=== PATIENT | male | born 1960 | race Caucasian/White ===

== ENCOUNTER 2022-07-15 09:06 | Outpatient (CLI) | payer MEDICARE, BC, SELFPAY | END 2022-07-15 09:07 | disposition home or self-care (01) | PROVIDERS: PCP Family Medicine; Visit Provider Family Medicine | DX: M54.16 Radiculopathy, lumbar region (principal); M51.36 Other intervertebral disc degeneration, lumbar region | CPT/HCPCS: 62323; J0702; Q9966 ==

== ENCOUNTER 2022-09-05 07:48 | Outpatient (CLI) | payer MEDICARE, BC, SELFPAY ==
--- NOTE | 2022-09-05 08:15 | MR_ITS ---
[facility] [address] [facility] [address] Phone:?[phone] Fax:?[phone] Referring Physician Information: Davidson Harrington M.D. [address] [facility] [address] Phone:?[phone] Fax:?[phone] Patient:Charity Lord D.O.B:?1960 Sex:?Male Phone:?[phone] [facility] MRN:?[id number] Exam Date:?09/05/2022 ? EXAM: MRI of the LEFT HIP, without contrast CLINICAL: Left hip and lower back pain. COMPARISONS: X-rays 09/01/22. TECHNICAL: MR sequences of the left hip: Axials: PD FS Axial oblique: PD Coronals: PD, T2 Coronal pelvis: T1 and STIR Sagittals: PD and T2 SEDATION: None. CONTRAST: None. FINDINGS: Evaluation of multiple sequences is relatively limited by artifact. Hip joint: Small volume of fluid is present within the left hip joint. No convincing loose bodies. There is high-grade chondral loss involving the superior medial left hip joint. Labrum: Evaluation is limited on multiple sequences secondary to artifact. Suspect ill- defined degenerative fraying/tearing involving the majority of the labrum as visualized. No perilabral cyst formation identified. Proximal femur: No marrow edema, fracture or osteonecrosis. No convincing femoral cam morphology. Acetabulum: No significant subchondral marrow edema, cystic change or fracture. Version: No convincing retroversion as visualized. Coverage: Left lateral center edge (CE) angle measures approximately 44? (normal 25?-39?), midline coronal series 4 image 13. Ligamentum teres: Attenuated. Pelvis osseous structures: No evidence of osseous lesion or fracture involving the imaged osseous structures of the pelvis. Mild bone marrow edema about the inferior sacroiliac joints bilaterally likely reflecting reactive changes of arthrosis. No evidence of osteitis pubis. Myotendinous structures: Gluteus abductors: No convincing insertional tendinopathy or tear of gluteus minimus or medius. Adductors: There is high-grade tearing of the common abdominal rectus/adductor longus aponeurosis at the pubic attachment site bilaterally as seen on coronal series 2 image 6-8 and axial series 7 image 15-21. Hamstrings: There is advanced tendinosis with superimposed partial tearing involving the proximal hamstring tendons bilaterally at the ischial tuberosity attachment sites. Flexors: Intact iliopsoas and rectus femoris, without strain/tear. External rotators: Intact. The ischiofemoral and quadratus femoris spaces are within normal limits. Bursae: No demonstrable trochanteric or iliopsoas bursitis. Intrapelvic structures: Although evaluation of the intrapelvic structures is limited on this exam, no convincing pelvic mass is identified as visualized. Degenerative changes are seen to involve the imaged lower lumbar spine, please see dedicated lumbar spine MRI for further information. IMPRESSION: 1. High-grade tearing of the common abdominal rectus/adductor longus aponeurosis at the pubic attachment site bilaterally. 2. Advanced tendinosis with superimposed partial tearing of the proximal hamstring tendons bilaterally at the ischial tuberosity attachment sites. 3. High-grade chondral loss involving the superomedial left hip joint. 4. Although evaluation of the acetabular labrum is limited due to artifact on multiple sequences, suspect ill-defined degenerative fraying/tearing involving the acetabular labrum as visualized. High-grade chondral loss involving the superior medial left hip joint. 5. Acetabular over-coverage which can contribute to pincer-type femoral acetabular impingement. 6. Attenuated appearance of the ligamentum teres. 7. Mild changes of arthrosis involving the inferior sacroiliac joints bilaterally. ELANA Electronically signed on 09/05/2022 1:21:00 PM by Bashir Gavin D.O.
--- NOTE | 2022-09-05 09:15 | MR_ITS ---
[facility] [address] [facility] [address] Phone:?[phone] Fax:?[phone] Referring Physician Information: Davidson Harrington M.D. [address] [facility] [address] Phone:?[phone] Fax:?[phone] Patient:?Ulysses Lord D.O.B:?1960 Sex:?Male Phone:?[phone] [facility] MRN:?[id number] Exam Date:?09/05/2022 ? EXAM:?MR LUMBAR SPINE WITHOUT CONTRAST CLINICAL INFORMATION: Left low back and hip pain. COMPARISON: 04/15/2021.?SEDATION:?None. TECHNICAL INFORMATION: Imaging was performed at [facility]. Sagittal and axial T1 / FSE T2, and sagittal STIR images were obtained through the lumbar spine. INTERPRETATION: L5-S1:?Moderate degeneration, bulge, constricted dural sac and S1 root sleeves due to circumferential epidural fat deposition. Moderate to severe foraminal up down stenosis and ganglion compression. L4-5: Mild degeneration, 2 mm spondylolisthesis, facet arthropathy and significant dural sac constriction at upper L5 due to epidural fat deposition. Mild to moderate left foraminal stenosis with ganglion contact and right facet joint effusion. L3-4: Normal disc height, no central stenosis or disc herniation and patent foramina. Mild facet degeneration. L2-3: Moderate degeneration, mild central canal narrowing with increased epidural fat deposition and no disc herniation or neural impingement. Unremarkable facet joints. L1-2: Moderate degeneration and dural sac constriction due to epidural fat deposition. No herniation or foraminal stenosis. T12-L1: Unremarkable. Osseous Structures: Fat suppressed images are negative for acute or subacute fractures. Paraspinous Soft Tissues: No mass lesions. Conus, Cord and Cauda Equina: Normal position conus and no evidence of intradural mass or arachnoiditis. Lipomatous filum terminale. CONCLUSION: 1. Severe dural sac constriction from L5 inferiorly into the sacrum due to prominent epidural lipomatosis. Lipomatosis also causes constriction of the dural sac at L1-2 and L2-3. 2. Moderate to severe L5-S1 foraminal stenosis and ganglion compression. 3. L4-5 facet degeneration with grade I spondylolisthesis, mild to moderate left foraminal stenosis and right facet joint effusion. 4. Comparison to 11/02/2020 shows new right facet joint effusion at L4-5. Electronically signed on 09/05/2022 2:57:00 PM by Gilberto Stephens M.D.
== END 2022-09-05 07:49 | disposition home or self-care (01) ==
LOC: MRI 07:51
PROVIDERS: PCP Family Medicine; Visit Provider Family Medicine
DX: M54.50 Low back pain, unspecified (principal); M43.16 Spondylolisthesis, lumbar region; M25.552 Pain in left hip; M25.48 Effusion, other site
CPT/HCPCS: 72148; 73721

== ENCOUNTER 2022-09-23 09:47 | Outpatient (CLI) | payer MEDICARE, BC, SELFPAY | END 2022-09-23 09:48 | disposition home or self-care (01) | LOC: INJ CL 09:48 | PROVIDERS: PCP Family Medicine; Visit Provider Family Medicine | DX: M54.16 Radiculopathy, lumbar region (principal); M51.36 Other intervertebral disc degeneration, lumbar region | CPT/HCPCS: 62323; J0702; Q9966 ==

== ENCOUNTER 2022-10-16 06:24 | Outpatient (CLI) | payer MEDICARE, BC, SELFPAY ==
[2022-10-16 06:56] VITALS: BP 124/87; PULSE 62; RESP 18; TEMP 36.1; O2SAT 98
[2022-10-16 07:32] VITALS: BP 106/74; PULSE 58; RESP 18; O2SAT 96
--- NOTE | 2022-10-16 07:33 | P.ORPRC_ITS ---
Procedure Note Date of procedure: 10/16/22 Procedure: SURGEON: Edi Khalil MD PROCESS CONTROLS TECHNICIAN: Josiane De Oliveira PA-C PREOPERATIVE DIAGNOSIS: Left hip abductor tendinopathy/greater trochanteric bursitis POSTOPERATIVE DIAGNOSIS: Left hip abductor tendinopathy/greater trochanteric bursitis NAME OF OPERATION: Percutaneous tenotomy ANESTHESIA: Local ESTIMATED BLOOD LOSS: 2 mL. COMPLICATIONS: None. SPECIMENS: None. DRAINS: None. PREOPERATIVE ANTIBIOTICS: None INDICATIONS: The patient is a 62-year-old with a history of left hip pain secondary to the above diagnoses. Despite appropriate non operative management, they continue to have symptoms. Operative intervention was recommended. The risks, benefits and expected outcomes were discussed in detail. These included but were not limited to: Infection, bleeding, injury to blood vessel or nerve, venous thromboembolism. All questions were answered to their satisfaction. PROCEDURE: The patient was placed in the lateral decubitus position. The left hip was imaged in the long and short axes with the ultrasound transducer. Normal acoustic landmarks were identified. We then sterilely prepped and draped the skin, and used a sterile probe cover with sterile gel. Local anesthesia was established with 10 mL of a solution containing 2 % lidocaine without epinephrine, 0.5% Marcaine without epinephrine and sodium bicarbonate. An 11 blade was used to incise the skin. The Tenex TX 2 micro tip was used to treat the abductor tendon for a total of 3 minutes and 48 seconds. The incision was Steri-Stripped closed. A dry dressing was applied. Sponge and needle counts were correct x2. The patient tolerated the procedure well. There were no apparent complications. They were discharged to home in satisfactory condition. PLAN: The patient may weightbear as tolerates. Tylenol can be used for pain/discomfort. They may ramp up activity as the hip will allow. They will follow up in the office in 6 weeks to assess their progress.
== END 2022-10-16 07:51 | disposition home or self-care (01) ==
LOC: US 06:26
PROVIDERS: PCP Family Medicine; Visit Provider Orthopaedic Surgery
DX: S76.212A Strain of adductor muscle, fascia and tendon of left thigh, initial encounter (principal); M70.62 Trochanteric bursitis, left hip
CPT/HCPCS: 27006; 76942

== ENCOUNTER 2023-01-06 08:08 | Outpatient (CLI) | payer MEDICARE, BC, SELFPAY | END 2023-01-06 08:09 | disposition home or self-care (01) | LOC: INJ CL 08:09 | PROVIDERS: PCP Family Medicine; Visit Provider Family Medicine | DX: M51.36 Other intervertebral disc degeneration, lumbar region (principal); M54.16 Radiculopathy, lumbar region | CPT/HCPCS: 62323; J0702; Q9966 ==

== ENCOUNTER 2023-05-19 06:51 | Outpatient (CLI) | payer MEDICARE, BC, SELFPAY | END 2023-05-19 06:52 | disposition home or self-care (01) | LOC: INJ CL 06:51 | PROVIDERS: PCP Family Medicine; Visit Provider Family Medicine | DX: M51.36 Other intervertebral disc degeneration, lumbar region (principal); M54.16 Radiculopathy, lumbar region | CPT/HCPCS: 62323; J0702; Q9966 ==

== ENCOUNTER 2023-10-22 07:52 | Outpatient (CLI) | payer MEDICARE, BC, SELFPAY ==
--- NOTE | 2023-10-22 08:15 | MR_ITS ---
Patient: AZAM WING Facility:?[facility] Patient ID:?[id number] Site Patient ID:?[id number]. Site :?1960 Study:?MRI-Spine Lumbar W/O-10/22/2023 9:12:24 AM Ordering Physician:MIL STANTON Final Report: Indication: Lumbar disc degeneration Technique: Multiplanar, multisequence, MRI of the lumbar spine, obtained without contrast. Comparison: MRI lumbar spine 09/05/2022 Findings: Preserved lumbar lordosis. Trace anterolisthesis at L4-5. No acute osseous abnormality. Scattered degenerative Schmorl`s nodes. Unremarkable bone marrow signal. Conus medullaris terminates at L1-L2. Redemonstration of lipoma of the filum terminale, measuring slightly greater than 3 mm diameter at the L2-3 level, tapering caudally. No suspicious findings in the paraspinal soft tissues. Mild degenerative changes of the included SI joints. T12-L1, L1-L2: No significant neural foramen or spinal canal stenosis. L2-L3: Mild diffuse disc bulge. No right, mild left neural foraminal narrowing. Mild spinal canal narrowing exaggerated by dorsal epidural lipomatosis. L3-L4: Mild diffuse disc bulge, mild facet arthropathy. No left, mild right neural foraminal narrowing. No spinal canal stenosis. L4-L5: Anterolisthesis, diffuse disc bulge, moderate facet arthropathy. Mild right, moderate left neural foraminal stenosis. Moderate thecal sac effacement exaggerated by dorsal epidural lipomatosis. No significant osseous spinal canal narrowing. L5-S1: Diffuse disc bulge, moderate facet arthropathy. Severe bilateral neural foraminal stenosis. Severe thecal sac effacement due to circumferential epidural lipomatosis. No osseous spinal canal narrowing. Impression: 1. Lumbar spondylosis, not significantly progressed relative to 09/05/2022. 2. At L5-S1, severe bilateral neural foraminal stenosis with likely bilateral exiting L5 nerve root impingement. Severe thecal sac effacement due to circumferential epidural lipomatosis, without osseous spinal canal narrowing. 3. At L4-L5, moderate left neural foraminal stenosis, and moderate thecal sac effacement from dorsal epidural lipomatosis, without osseous spinal canal narrowing. 4. Incidental lipoma of the filum terminale, without evidence to suggest cord tethering. Dictated by Rachana Washington MD @ 10/22/2023 2:02:44 PM Signed by:?aRchana Washington MD @10/22/2023 2:02:44 PM (Electronic Signature)
== END 2023-10-22 07:53 | disposition home or self-care (01) ==
LOC: MRI 07:54
PROVIDERS: PCP Family Medicine; Visit Provider Physician Assistant
DX: M51.36 Other intervertebral disc degeneration, lumbar region (principal); M47.896 Other spondylosis, lumbar region; M48.07 Spinal stenosis, lumbosacral region; M48.061 Spinal stenosis, lumbar region without neurogenic claudication
CPT/HCPCS: 72148

== ENCOUNTER 2024-04-15 07:14 | Outpatient (CLI) | payer MEDICARE, BC, SELFPAY | END 2024-04-15 07:15 | disposition home or self-care (01) | LOC: INJ CL 07:15 | PROVIDERS: PCP Family Medicine; Visit Provider Family Medicine | DX: M54.16 Radiculopathy, lumbar region (principal); M51.36 Other intervertebral disc degeneration, lumbar region | CPT/HCPCS: 62323; J0702; Q9966 ==

== ENCOUNTER 2024-06-08 07:26 | Outpatient (CLI) | payer MEDICARE, BC, SELFPAY ==
--- NOTE | 2024-06-08 08:00 | CT_ITS ---
Patient: AZAM WING Facility:?[facility] Patient ID:?[id number] Site Patient ID:?[id number]. Site :?1960 Study:?CT-Spine Lumbar -06/08/2024 8:48:23 AM Ordering Physician:Jesus Kan Final Report: INDICATION: Lumbar spondylosis, preop exam. TECHNIQUE: CT lumbar spine without contrast. COMPARISON: X-ray pelvis 09/01/2022 FINDINGS: Lumbar vertebral body height is maintained. There is slight anterolisthesis of L4 over L5. The reduction of intervertebral disc height is present at L2-3 and L5-S1 levels. Vacuum disc phenomenon is identified at L4-5 and L5-S1 level. There is no acute fracture. Multilevel degenerative changes are as described below. L1-2: No significant spinal canal or neural foraminal narrowing. L2-3: No significant spinal canal or neural foraminal narrowing. L3-4: There is minimal disc bulge and [id number] facet arthropathy causing mild neural foraminal narrowing and spinal canal stenosis. Infolding of the ligamentum flavum is present. L4-5: Minimal anterolisthesis of L4 over L5 with pseudo disc bulge. Advanced facet arthropathy and thickening of the left greater than right ligamentum flavum is present. There is mild to moderate neural foramina and mild spinal canal stenosis. L5-S1: There is central posterior osteophytes and disc bulge with bilateral facet arthropathy causing mild neural foraminal stenosis. No significant spinal canal narrowing. Variable deeper soft tissue demonstrates no acute findings. No acute abnormality in the included abdomen. IMPRESSION: Scattered multilevel degenerative changes, most pronounced at L4-5 level. Please note that all CT scans at this facility use dose modulation, iterative reconstruction, and/or weight-based dosing when appropriate to reduce radiation dose to as low as reasonably achievable. Dictated by Vernon Lenz MD @ 06/09/2024 7:33:22 AM Signed by:?Vernon Lenz MD @06/09/2024 7:33:22 AM (Electronic Signature)
== END 2024-06-08 07:27 | disposition home or self-care (01) ==
LOC: CT 07:27
PROVIDERS: PCP Family Medicine; Visit Provider Neurological Surgery
DX: M47.896 Other spondylosis, lumbar region (principal); M43.17 Spondylolisthesis, lumbosacral region
CPT/HCPCS: 72131

== ENCOUNTER 2024-08-05 12:57 | Outpatient (CLI) | payer MEDICARE, SELFPAY ==
--- NOTE | 2024-08-05 13:00 | CRLHL7_ITS ---
For Patients: As a result of the Century Cures Act, medical imaging exams and procedure reports are released immediately into your electronic medical record. You may view this report before your referring provider. If you have questions, please contact your health care provider. INDICATION: Low back pain. COMPARISON: 06/08/2024. TECHNIQUE: Noncontrast CT lumbar spine. FINDINGS: Normal vertebral body alignment. No acute fractures. Interval postop changes of diskectomy and interbody fusion L4-5 and L5-S1 with posterior hipolito trans beer screw fixation L4-S1. Hardware appears well seated. [id number]: No spinal canal or neural foraminal narrowing. L1-2: Disc degeneration. Diffuse disc bulge. No narrowing of spinal canal. No neural foraminal narrowing. L2-3: Disc degeneration loss disc height. Posterior disc bulge. Mild narrowing of spinal canal. No neural foraminal narrowing. L3-4: Postoperative changes. No narrowing of spinal canal. No neural foraminal narrowing. L4-5: Postop changes. Spinal canal is decompressed by laminectomy. No neural foraminal narrowing. L5-S1: Prominence of the epidural fat. Tapered narrowing of thecal sac. No impingement of the traversing S1 nerve roots. Allowing for artifact, there may be mild narrowing of bilateral foramina. Degenerative changes of the SI joints. Scattered vascular calcifications. Partially calcified density within the left pelvis interposed between the cell as and iliac musculature (series 3, image [id number]). This is new from the previous CT likely related to postoperative changes. IMPRESSION: 1. Normal alignment. No fractures 2. Interval postop changes L4-5 and L5-S1. Hardware appears well seated 3. At L2-3, mild narrowing of the spinal canal 4. At L5-S1, stable prominent epidural fat. There may be mild narrowing of the bilateral neural foramina. Please note that all CT scans at this facility use dose modulation, iterative reconstruction, and/or weight-based dosing when appropriate to reduce radiation dose to as low as reasonably achievable. Dictated by Chay Giles MD @ 08/07/2024 8:23:57 AM (Electronically Signed)
== END 2024-08-05 12:58 | disposition home or self-care (01) ==
LOC: CT 13:01
PROVIDERS: PCP Family Medicine; Visit Provider Neurological Surgery
DX: M54.50 Low back pain, unspecified (principal); M51.26 Other intervertebral disc displacement, lumbar region; M51.27 Other intervertebral disc displacement, lumbosacral region; M43.17 Spondylolisthesis, lumbosacral region
CPT/HCPCS: 72131

== ENCOUNTER 2024-09-24 15:07 | Emergency (ER) | payer MEDICARE, SELFPAY ==
[2024-09-24 15:11] VITALS: BP 117/55; PULSE 70; RESP 24; TEMP 36.6; O2SAT 96; BMI 51.7
--- NOTE | 2024-09-24 15:42 | ED.WEAKNESS ---
HPI - Weakness General Chief complaint: Weakness Stated complaint: Unable to eat, dehydration Time Seen by Provider: 09/24/24 15:29 History of Present Illness HPI Narrative: This 64-year-old male typically goes to [facility] but is frustrated with their services there. He comes in here stating that he has not been able to eat much of anything for the past week because when doing so he feels nauseated and the taste in his mouth is not pleasant. He had a surgery on his back couple months ago and currently has a PICC line in place where he is receiving vancomycin. He states that he is able to take some liquids a but does have some episodes of diarrhea also at times. He arrives here with normal vital signs. He states that he is feeling weak but he does have sufficient strength to get up and ambulate. He is morbidly obese with a BMI greater than 50. Related Data Home Medications ?Medication ?Instructions ?Recorded ?Confirmed amlodipine 10 mg tablet 10 mg PO QDAY 06/23/22 11/26/22 aspirin 81 mg tablet,delayed 81 mg PO QDAY 06/23/22 11/26/22 release escitalopram oxalate 20 mg tablet 20 mg PO QDAY 06/23/22 09/24/24 ezetimibe 10 mg tablet 10 mg PO QHS 06/23/22 09/24/24 famotidine 20 mg tablet 20 mg PO QDAY 06/23/22 11/26/22 metoprolol succinate 100 mg mg PO 06/23/22 11/26/22 tablet,extended release 24 hr nitroglycerin 0.4 mg sublingual 0.4 mg sublingual ONCE PRN chest 06/23/22 11/26/22 tablet pain omega-3 acid ethyl esters 1 gram 2 cap PO QDAY 06/23/22 11/26/22 capsule pantoprazole 40 mg tablet,delayed mg PO 06/23/22 11/26/22 release rosuvastatin 40 mg tablet 40 mg PO QDAY hyperlipidemia 06/23/22 09/24/24 celecoxib 200 mg capsule mg 09/24/24 digoxin 250 mcg (0.25 mg) tablet DAILY 09/24/24 furosemide 40 mg tablet mg DAILY 09/24/24 gabapentin 300 mg capsule mg 3XD 09/24/24 metformin 500 mg tablet,extended mg PO 09/24/24 release 24 hr vancomycin 5 gram intravenous g IV 09/24/24 solution Allergies Allergy/AdvReac Type Severity Reaction Status Date / Time Penicillins Allergy Verified 04/15/24 08:03 Xabhmoa-HQH-OzI Reductase Allergy Verified 04/15/24 08:03 Inhibitor Review of Systems Status of ROS: Reports: 10 or more systems reviewed and unremarkable except as noted in History and below Narrative: Constitutional: No fevers. Eyes: No discharge. No vision changes. HENT: No congestion, no sore throat, no ear pain. Cardiovascular: No chest pain, no palpitations. Respiratory: No shortness of breath, no wheezes, no cough. Gastrointestinal: No abdominal pain, no vomiting, no diarrhea. Genitourinary: No dysuria, no hematuria. Musculoskeletal: Normal range of motion. Skin: No rashes, no pruritis. Neurological: No dizziness, sensory change, speech change. Generalized weakness. Endo/Heme/Allergies: No bruising or bleeding. No polydipsia. Pysch: no suicidality, no anxiety, no insomnia. All other systems reviewed and are negative. [facility] Medical History Hamstring tendinitis of left thigh ?M76.892 - Other specified enthesopathies of left lower limb, excluding foot (ICD-10) Greater trochanteric bursitis of left hip ?M70.62 - Trochanteric bursitis, left hip (ICD-10) Hypercholesteremia ?E78.00 - Pure hypercholesterolemia, unspecified (ICD-10) Hypertension ?I10 - Essential (primary) hypertension (ICD-10) Sleep apnea ?G47.30 - Sleep apnea, unspecified (ICD-10) GERD (gastroesophageal reflux disease) ?K21.9 - Gastro-esophageal reflux disease without esophagitis (ICD-10) Surgical History Status post hip surgery (10/16/22) ?Z98.890 - Other specified postprocedural states (ICD-10) History of elbow surgery ?Z98.890 - Other specified postprocedural states (ICD-10) History of bilateral knee replacement ?Z96.653 - Presence of artificial knee joint, bilateral (ICD-10) Social History Smoking Status: Never smoker Do you use any of these nicotine containing products: None Second hand tobacco smoke exposure: No How often do you have a drink containing alcohol: 2-3 times a week AUDIT-C Alcohol total score: 3 Non-prescribed substance use: denies use Are you now , , , , never or living with a partner: Social isolation score (0-1 are the most socially isolated patients): 1 Exam Const: Vital Signs, click to edit/add: Vital Signs - 24 hr 09/24/24 15:11 Temperature 97.8 F Pulse Rate [Pulse Oximeter] 70 Respiratory Rate 24 Blood Pressure [Ri ght Upper Arm] 117/55 L Pulse Oximetry 96 Oxygen Delivery Me thod Room Air Course Vital Signs Vital signs: Initial Vital Signs Temperature 97.8 F 09/24/24 15:11 Temperature Source Temporal Artery Scan 09/24/24 15:11 Pulse Rate 70 09/24/24 15:11 Respiratory Rate 24 09/24/24 15:11 Blood Pressure 117/55 L 09/24/24 15:11 Blood Pressure Mean 75 09/24/24 15:11 Blood Pressure Position Sitting 09/24/24 15:11 Pulse Oximetry 96 09/24/24 15:11 Oxygen Delivery Method Room Air 09/24/24 15:11 Vital Signs Temperature 97.8 F 09/24/24 15:11 Pulse Rate 70 09/24/24 15:11 Respiratory Rate 24 09/24/24 15:11 Blood Pressure 117/55 L 09/24/24 15:11 Pulse Oximetry 96 09/24/24 15:11 Oxygen Delivery Method Room Air 09/24/24 15:11 Temperature 97.8 F 09/24/24 15:11 Pulse Rate 70 09/24/24 15:11 Respiratory Rate 24 09/24/24 15:11 Blood Pressure 117/55 L 09/24/24 15:11 Pulse Oximetry 96 09/24/24 15:11 Oxygen Delivery Method Room Air 09/24/24 15:11 Medications Administered Medications: Discontinued Medications Generic Name Dose Route Start Last Admin Trade Name Freq PRN Reason Stop Dose Admin Dextrose/Sodium Chloride 1,000 mls @ 1,000 mls/hr 09/24/24 15:39 09/24/24 16:36 5 % Dextrose/0.45% Sod Chlor IV 09/24/24 16:38 1,000 mls/hr .Q1H ONE Administration Methylprednisolone Sodium Succinate 125 mg 09/24/24 15:39 09/24/24 16:40 Methylprednisolone Sod Succ 62.5 Mg/Ml (125) IVP 09/24/24 15:40 125 mg ONCE ONE Administration MDM - Weakness MDM Narrative Medical decision making narrative: This 64-year-old male comes in reporting generalized weakness and fatigue. He states that he is interested in food but when he tries to eat something and has a terrible taste in his mouth. He does report some diarrhea. He has a PICC line in place and is getting vancomycin treatments after a surgery that occurred 2 and half months ago that resulted in infection apparently. He does not normally Dr. Here and so we do not have any records regarding his past medical history. An IV was established where the patient received a L of D5 half-normal saline along with a dose of methylprednisolone 125 mg. Labs are acquired and return with notable finding of hemoglobin at 7.6. The patient was not aware of low hemoglobin. The nurse did acquire recent records from his visits elsewhere and see that this is not a new finding. His hemoglobin is ranging between 7.6 and 8.5 over the past couple weeks. The patient states that he did start taking Eliquis a few weeks ago because he was noted to be in atrial fibrillation at times. He does not report any obvious bleeding. He states that he did have a knee surgery about 12 years ago after which time he did receive a blood transfusion. this patient is okay to be discharged home but may need a transfusion at some point. I advised him to follow-up with his primary physician regarding these findings. He is instructed to return here if symptoms are worsening. I advised him to hold his Eliquis until further instructions from his primary physician. Lab Data Labs: Lab Results 09/24/24 Range/Units 16:00 WBC 6.43 (4.50-11.00) K/uL RBC 2.61 L (4.30-5.90) m/uL Hgb 7.6 L* (13.5-17.5) gm/dL Hct 24.3 L (37.0-53.0) % MCV 93 (80-100) fL MCH 29 (26-34) pg MCHC 31 L (32-36) gm/dL RDW Coeff of Naomi 16.6 H (11.5-15.5) % Plt Count 253 (140-440) K/uL Neut % (Auto) 75.2 H (42.0-72.0) % Lymph % (Auto) 8.7 L (20-44) % Greene % (Auto) 11.5 H (0.0-11.0) % Eos % (Auto) 3.6 (0.0-7.0) % Baso % (Auto) 0.5 (0.0-3.0) % Neut # (Auto) 4.80 (1.7-7.0) K/uL Lymph # (Auto) 0.60 L (0.90-2.90) K/uL Greene # (Auto) 0.70 (0.00-0.90) K/UL Eos # (Auto) 0.23 (0.00-0.50) K/uL Baso # (Auto) 0.03 (0.00-0.30) K/uL Abs Immat Gran (auto) 0.03 (0.00-0.30) K/uL Imm/Tot Granulo (auto) 0.5 % Sodium 134 L (135-149) mmol/L Potassium 4.7 (3.6-5.1) mmol/L Chloride 100 (96-114) mmol/L Carbon Dioxide 24 (20-32) mmol/L Anion Gap 10 (7-15) mEq/L BUN 10 (7-30) mg/dL Creatinine 1.3 (0.5-1.5) mg/dL Estimated Creat Clear 59.27 Estimated GFR 61 ml/min Glucose 99 (60-115) mg/dL Calcium 8.6 (8.4-10.6) mg/dL Discharge Plan Discharge Clinical Impression: Anemia, Dyspepsia Patient Disposition: Home, Self-Care Condition: Unchanged Additional Instructions: Hold Eliquis. Take liquids and increase diet as tolerated. Follow up with primary physician regarding low hemoglobin. Return if worsening. Prescriptions: No Action rosuvastatin 40 mg tablet 40 mg PO QDAY ezetimibe 10 mg tablet 10 mg PO QHS amlodipine 10 mg tablet 10 mg PO QDAY pantoprazole 40 mg tablet,delayed release (DR/EC) PO metoprolol succinate 100 mg tablet extended release 24 hr PO escitalopram oxalate 20 mg tablet 20 mg PO QDAY nitroglycerin 0.4 mg tablet, sublingual 0.4 mg sublingual ONCE PRN (Reason: chest pain) famotidine 20 mg tablet 20 mg PO QDAY aspirin 81 mg tablet,delayed release (DR/EC) 81 mg PO QDAY omega-3 acid ethyl esters 1 gram capsule 2 cap PO QDAY celecoxib 200 mg capsule Patient Comments: [NO ORIGINAL SIG] furosemide 40 mg tablet DAILY vancomycin 5 gram recon soln IV digoxin 250 mcg (0.25 mg) tablet DAILY gabapentin 300 mg capsule 3XD metformin 500 mg tablet extended release 24 hr PO Patient Comments: TAKE ONE TABLET BY MOUTH WITH BREAKFAST AND TWO TABLETS WITH DINNER. Follow Up/Referrals: Samm Alberto MD [Primary Care Provider] - Stand Alone Forms: Results Scorecard Info Instructions
[2024-09-24 16:11] LABS: Basophils Absolute Auto 0.03 K/uL (0.00-0.30); Basophils Percent Auto 0.5 % (0.0-3.0); Eosinophils Absolute Auto 0.23 K/uL (0.00-0.50); Eosinophils Percent Auto 3.6 % (0.0-7.0); Hematocrit 24.3 % (37.0-53.0); Immature Granulocytes Abs Auto 0.03 K/uL (0.00-0.30); Immature Granulocytes Pct Auto 0.5 %; Lymphocytes Percent Auto 8.7 % (20-44); Mean Corpuscular HGB Conc 31 gm/dL (32-36); Mean Corpuscular Hemoglobin 29 pg (26-34); Mean Corpuscular Volume 93 fL (80-100); Monocytes Percent Auto 11.5 % (0.0-11.0); Neutrophils Percent Auto 75.2 % (42.0-72.0); Platelet Count* 253 K/uL (140-440); RDW Coefficient of Variation % 16.6 % (11.5-15.5); Red Blood Count 2.61 m/uL (4.30-5.90); White Blood Count* 6.43 K/uL (4.50-11.00)
[2024-09-24 16:23] LABS: Chloride* 100 mmol/L (96-114); Potassium* 4.7 mmol/L (3.6-5.1); Sodium* 134 mmol/L (135-149)
[2024-09-24 16:26] LABS: Anion Gap 10 mEq/L (7-15); Blood Urea Nitrogen* 10 mg/dL (7-30); Carbon Dioxide* 24 mmol/L (20-32); Creatinine* 1.3 mg/dL (0.5-1.5); Est. Creatinine Clearance* 59.27; Estimated Glomerular Filt Rate 61 ml/min; Glucose* 99 mg/dL (60-115)
[2024-09-24 16:27] LABS: Calcium* 8.6 mg/dL (8.4-10.6)
[2024-09-24 16:30] LABS: Hemoglobin* 7.6 gm/dL (13.5-17.5); Slide Review Reflex No
[2024-09-24] MEDS: 5 % DEXTROSE/0.45% SOD CHLOR 1,000 ML 1000 ML IV (16:36)
[2024-09-24] MEDS: METHYLPREDNISOLONE SOD SUCC 62.5 MG/ML (125) 125 MG IVP (16:40)
--- OUTSIDE RECORDS SUMMARY | 2024-09-24 17:23 | XMS_ITS | Data Portability ---
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 - If Bracing is ordered: Reduce pain by restricting mobility of the trunk. 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 Patient is on the way home Have you noticed any increased warmth, swelling, or irritation at, or surrounding the incision site? Denies any of the above signs of infection. Patient currently rates pain at /10. 4/10 Would you say that your pain is reasonable and adequately controlled? Yes How often are you using pain medication? Current methods of pain relief include: Hydrocodone 10-325mg q4hrs. Have you had a bowel movement since surgery? Not yet, but is taking stool softeners Do they have beau, and if so, a plan for removal? No need. Do you have any questions about how to take care of yourself or future follow-ups now that you are home? All questions answered Follow-up appointment scheduled 08/09/[address] Reviewed signs and symptoms of infection with the patient. Addressed the importance of reaching out to the clinic if there is any increased pain or if any other problem arises. 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 Patient verbalized understanding. Not available 07/09/2024 15:23:51 07/21/2024 07/21/2024 Assessment: - epidural abscess. L3/4 s/p L4-S1 Fusion - Patient's high BMI of 53 noted at the time of surgery may contribute to postoperative risks. Diagnosis: - Epidural abscess [TK] Conclusion: The patient, post L4-S1 OLLIF, has developed postoperative complications, with imaging suggesting an epidural abscess. The patient was functional at the last assessment, and a primary closure with a drain was applied to address the infection. The infection was noted to be above the area of surgery and there was no connection to the screw site. Further management and close monitoring are necessary. Auto Synopsis: 07-21-24-HEDRICK-ISE, Post L4-S1 OLLIF at [facility], WBC 22,000, f/u for epidural abscess L3-4, no screw site connection, primary closure w/ drain, BMI 53, [email or web address] Not available 07/21/2024 16:44:55 08/10/2024 08/10/2024 Diagnosis: - Status post L4 to S1 OLLIF - Post operative infection - Nerve root irritation Assessment/Plan: - Discussed the patient's physical exam and reviewed their imaging - Discussed all treatment options and agreed upon the following: - All questions answered to the patient's satisfaction - They will call the clinic or return if they have any interim concerns - Activity: WBAT, Instructed to BLTs, avoid strenuous activity and heavy lifting - Pain control: recommended course of OTC NSAIDs and Tylenol if no medical contraindications - Order: Follow-up CT imaging in two months - Order: Referral to physical therapy for strength training of lower extremities and lumbar support - Follow-up: with infectious disease specialist on the and with the clinic in two months for repeat imaging - Bone growth stimulator dispensed along with instructions on usage. [email or web address] Not available 08/10/2024 17:37:50 Plan of Treatment Reminders Order Date Submit Date Provider Last Modified By Organization Details Last Modified Time Details Appointments Follow Up 30 Min 2024 10:30A M MANJULA OROPEZA Not available Not available Not available Lab None recorded . Referral None recorded . Procedures None recorded . Surgeries None recorded . Imaging None recorded . Medication Orders None recorded . Patient TargetsNo targets recorded. Patient Instructions Encounter Date Encounter Id Patient Instructions Last Modified By Denisseati on Details Last Modified Time 12/29/2023 [id number] Conclusion: The patient exhibits severe lumbar degeneration, confirmed by imaging, with persistent 10/10 lower back pain extending to the left leg, aligning with nerve distribution. Non-surgical treatments have been attempted without sufficient improvement. Based on these findings, the patient is a strong candidate for surgery, specifically an OLLIF procedure facilitated by Dr. Loreta Pena at a facility capable of accommodating the patient's BMI requirements. The potential benefits and risks of the procedure have been discussed with the patient, who is eager to proceed as soon as possible for favorable outcomes and to ensure recovery before the fall season. Informed Consent: I discussed with the patient the diagnosis, prognosis, alternative option to do procedures in length and reviewed the films with the patient. I specifically went over the risk of the procedure including but not limited to Pain, bleeding, infection, failure to treat presenting condition, need for further procedures in the future, damage to adjacent blood vessels, nerves, and tissues, additional loss of function including memory, stroke, changes in vision, deafness, inability to smell, coordination loss, seizures, cerebral spinal fluid leak, weakness, impaired muscle function, numbness, paralysis, . We discussed that in my professional opinion the procedure is indicated and benefits outweigh the risk. but in no way any guarantee of success regarding the goal of the procedure can be provided. I was very clear that with chronic disease and smoking healing can be prolonged and the risks of the surgery/procedure are higher as well as poor outcome is more prevalent. For that reason, it is recommended to the patient not to start smoking, and quitting smoking prior to the procedure is always recommended. The patient understands all of the above and wishes to proceed with the procedure. Consent and Disclosure regarding medical care in limited capacity facility. Following has been clearly discussed with the patient: We at [facility] are committed to the highest quality care in [facility]. This by nature includes at times providing medical care in a hospital with limited specialty coverage. If the surgery has been chosen in such a hospital, it is considered to be generally safe in the setting of the chosen hospital. This may limit the amount of specialists available for care locally and may require the need to transfer the patient out to another facility if complications arise. Although complications are rare and the surgery has been chosen to be safe in the hospital of choice, the risks of complications are real and this is disclosed to the patient. The patient has been informed that he/she has the choice of hospitals and are hereby disclosed the possibility of complication and limited local capacity. We are working very carefully with the local hospital to put proper transfer mechanisms in place but many of the administrative matters are beyond the surgeon's reach. We encouraged a second opinion if desired, and that the patient should take time to think about options. Extensive financial disclosure was performed regarding my role in development of the devices, protocols, and research regarding the pending surgery with the patient and additional information has been provided. The patient understands all of this and has been given ample time to ask further questions. To my best knowledge, the patient does not have any untreated, underlying, contributory mental conditions or any psychosocial issues including but not limited to, depression, drug or alcohol abuse. OLLIF To my best knowledge, the patient does not have any significant untreated, underlying, contributory mental conditions or any psychosocial issues including but not limited to, depression, drug or alcohol abuse. Surgical necessity attestation for OLLIF: Patient reports pain of high severity limiting the following activities of daily living: Walking, sitting, lifting, bending. The patient s pain originates from the levels indicated on the imaging report on the lumbar spine. To my best knowledge patient does not have a generalized pain disorder or generalized pain behavior (ie. Somatoform disorder). The patient has completed the following diagnostic images within the past 12 months: Xray, MRI and/or CT of the lumbar spine. Intensive conservative therapies: Physical therapy, therapeutic injections, diagnostic injections. The patient s physical therapy was focused on the lumbar spine without improvement. The patient has tried therapeutic injections that have provided temporary relief. For these reasons, we recommend OLLIF (Oblique Lateral Lumbar Interbody Fusion). Other methods have discussed with patient. Any further delay will cause more unnecessary pain, suffering, extended duration, and increased costs to the patient and the health plan. Patient has significant lateral recess and foraminal stenosis, decompression will require a more than 50% facetectomy and possibly complete facetectomy to effectively treat the stenosis from the foraminal and lateral recess. The bone removal will create shortly iatrogenic instability that has to be treated with stabilization and fusion. Fusion for such amount of decompression is a standard treatment and I recommend anatomic decompression and minimal invasive interbody and posterior lateral fusion. Auto Synopsis: 12-29-2023 HEDRICK. Pt reports chronic LBP & leg pain, 05/05. Imaging confirms lumbar disc degeneration & spondylolisthesis. Pt completed required PT. Plan: Proceed to OLLIF surgery after confirming suitability. Outcome projected positive, pt displays strong candidacy for operative intervention. Synopsis: 6-4-13RC-JEANMARIE, consecutive therapy has failed in the back, CT of the lumbar spine from December 28, shows again L4 to S1, DDD, HMP, there is a mild grade [address] and severe degenerative changes with foraminal lat recess stenosis, patient cannot live with this pain anymore, we will proceed with L4 to S1 OLLIF, patient has high BMI, we have to find proper anesthesiologist service for the patient. [facility] Not available 12/29/2023 12:32:44 06/21/2024 [id number] Review With Patient => Post op medications were discussed with the patient. Patient is advised of the RX refill line at [phone] and has been asked to give us a 24-48hr notice before they are going to run out of pills. => Patient understand that narcotics can only be prescribed in increments of 7 days at a time, and that the providers at [facility] only manage narcotic use for up to 90 days post op. => It was discussed with the patient that the peak time for inflammation/pain after surgery is day 3-7. => Left leg numbness post-op was discussed with the patient as well as other signs and symptoms to monitor post operatively. => Patient was educated on post-op nerve root irritation. Pt was notified on the signs and symptoms to look for and how to contact us regarding implementing our nerve root protocol. --Post-Op Phone Call/Visits =>Patient is advised that they will be given a post op phone call 2 days after their surgery to discuss any questions they may have. =>Patient Post-op expectations will be covered again before discharge. =>Patient is encouraged to set up an appointment with their PCP 2 weeks post-op for an incision check and pain management update. => Patient has a 4 week post-op visit scheduled for 08/09/23 with Hung. This appointment will include a CT prior to the appointment, updated restrictions and the beginning of PT. --Activity => Patient was advised that they are able to remove their gauze bandages after the drainage has stopped. Steri strips are to stay on until they fall of on their own. => Patient is able to shower after surgery, but is to avoid submerging your wounds for 14 days post-op => Patient is educated that fusion will not likely be solid until at least 6 months after surgery so excessive activity needs to be held in the meantime. => Patient was advised of their 0-4 Week post op restrictions, as they will be given to them again at surgery discharge. --Day of Surgery => Patient is advised that the hospital/surgery center location will contact them the week of surgery regarding surgery details. => Patient was advised to bring their signed QR code consent form with them to surgery. Patient states that they have currently watched 05/05 videos in the patient expectation series. --Any questions? => All of the patient s questions were answered. Patient is advised to call the clinic if they have any further questions regarding their future surgery. I spent 30 minutes out of a 30-minute visit counseling the patient on education and answering questions regarding the chosen treatment plan. [email or web address] Not available 06/21/2024 11:08:17 08/10/2024 [id number] Conclusion: The patient has shown significant improvement post-surgery with stable hardware in place. Continued monitoring and rehabilitation are recommended to ensure optimal recovery. Synopsis: Ulysses Morton, 2024-08-10, DM, JEANMARIE, Lumbar CT, Date: 08-05-2024, Location: [facility]; s/p L4-S1 OLLIF, resolved infection; follow-up L CT, physical therapy, Follow-up: with ID specialist, two months for CT. Not available 08/10/2024 17:37:51 Reason for Referral None Reported. Results Created Date Observation Date Name Description Value Unit Range Abnormal Flag Note LastModifiedBy Organization Detail LastModifiedTime 12/31/19 24 12/29/2023 CT, lumba r spine , w/o contr ast No observ ation record ed. [email or web address] Not Available 2023 14:33:53 06/09/20 24 06/08/2024 CT, lumba r spine , w/o contr ast No observ ation record ed. PREETHI Not Available 2023 11:35:41 08/07/1908/05/2024 CT, lumba r spine , w/o contr ast No observ ation record ed. [address] [facility] [address] [place], [address], 08/14/2024 15:47:01 Result Notes None recorded. Procedures Surgical History Date Name Laterality Status Provider Name and Address Organization Details Recorded Time 07/08/2024 lumbar spinal fusion completed MANJULA OROPEZA [address], [place], [address], [facility] 08/10/2024 11:59:17 Imaging Results Imaging Date Name Status LastModified by Organiz ation Details LastModified Time 12/29/2023 CT, lumbar spine, w/o contrast completed [email or web address] Information not available 12/31/2023 14:33:53 06/08/2024 CT, lumbar spine, w/o contrast completed PREETHI Information not available 06/13/2024 11:35:41 08/05/2024 CT, lumbar spine, w/o contrast completed [address] [facility] [address] [place], [address], 08/14/2024 15:47:01 Procedure Notes None recorded. Medical Equipment None Reported. Allergies Allergen ID Allergen Name Allergen Category Reaction Reaction Severity Criticality Documentation Date Start Date Code Code System Note Provider Name and Address Organization Details Recorded Time 9533 Product containin g penicilli n (product) medicatio n swelling Not available Not available 10/05/2023 84661 8001 SNOMED Not Available Not Available Not Available 9534 Product containin g 3-hydroxy -3-methyl glutaryl- coenzyme A reductase inhibitor (product) medicatio n nausea Not available Not available 10/05/2023 24758 009 SNOMED Not Available Not Available Not Available 9535 oxycodone medicatio n Not available Not available Not available 10/05/2023 7804 RxNorm Not Available Not Available Not Available Medications Name Sig Start Date Stop Date Status Note LastModified by Organization Details LastModified Time celecoxib 200 mg capsule TAKE ONE CAPSULE BY MOUTH EVERY DAY WITH MEALS active Not Available Not Available No t Available cyclobenzap rine 10 mg tablet TAKE ONE TABLET BY MOUTH EVERY MORNING, ONE AT NOON AND TAKE ONE AT BEDTIME 2024 active Not Available Not Available Not Avai lable methocarbam ol 500 mg tablet Take 1 tablet 4 times a day by oral route as needed for 30 days, for spasms/pa in. 2023 active Not Available Not Available Not Avai lable nystatin 100,000 unit/mL oral suspension TAKE 10ML BY MOUTH THREE TIMES A DAY FOR 10 DAYS; SWISH AND SWALLOW 12/28 completed Not Available Not Available Not Available cefprozil 500 mg tablet TAKE ONE TABLET BY MOUTH TWICE A DAY active Not Available Not Available No t Available prednisone 10 mg tablet TAKE 6 TABLETS BY MOUTH ONCE DAILY FOR 2 DAYS THEN TAKE 5 TABLETS ONCE DAILY FOR 2 DAYS THEN TAKE 4 TABLETS ONCE DAILY FOR 2 DAYS THEN TAKE 12/28 completed Not Available Not Available Not Available metoprolol succinate ER 100 mg tablet,exte nded release 24 hr TAKE ONE TABLET BY MOUTH EVERY DAY active Not Available Not Available No t Available amlodipine 10 mg tablet TAKE ONE TABLET BY MOUTH EVERY DAY active Not Available Not Available No t Available cephalexin 500 mg capsule TAKE ONE CAPSULE BY MOUTH FOUR TIMES A DAY FOR 7 DAYS active Not Available Not Available No t Available pantoprazol e 40 mg tablet,karla yed release TAKE ONE TABLET BY MOUTH TWICE A DAY -30-60 MINUTES PRIOR TO MORNING AND EVENING MEALS active Not Available Not Available No t Available nitroglycer in 0.[address] TABLET UNDER THE TONGUE AT THE 1ST SIGN OF ATTACK. IF PAIN IS UNRELIEVE D OR WORSENED 5 MINS AFTER 1ST DOSE, PROMPT MEDICAL ASSISTANC active Not Available Not Available No t Available gabapentin 300 mg capsule Take 3 capsules 3 times a day by oral route as directed for 30 days, for pain. 2023 active Not Available Not Available Not Avai lable lisinopril 20 mg-hydrochl orothiazide 25 mg tablet TAKE ONE TABLET BY MOUTH EVERY DAY active Not Available Not Available No t Available hydroxyzine HCl 25 mg tablet TAKE ONE TABLET BY MOUTH EVERY MORNING, ONE AT NOON AND, TAKE ONE TABLET BY MOUTH AT BEDTIME 2024 active Not Available Not Available Not Avai lable metformin ER 500 mg tablet,exte nded release 24 hr TAKE ONE TABLET BY MOUTH EVERY DAY WITH BREAKFAST AND TAKE 2 TABLETS DAILY WITH DINNER active Not Available Not Available No t Available oxycodone 5 mg tablet TAKE 1 TO 2 TABLETS BY MOUTH EVERY 6 HOURS NEEDED FOR PAIN active Not Available Not Available No t Available escitalopra m 20 mg tablet TAKE ONE TABLET BY MOUTH EVERY DAY active Not Available Not Available No t Available ezetimibe 10 mg tablet TAKE ONE TABLET BY MOUTH AT BEDTIME active Not Available Not Available No t Available rosuvastati n 20 mg tablet TAKE TWO TABLETS BY MOUTH EVERY EVENING AT BEDTIME active Not Available Not Available No t Available rosuvastati n 40 mg tablet TAKE ONE TABLET BY MOUTH EVERY EVENING AT BEDTIME active Not Available Not Available No t Available Vitals Date Recorded Body height Heart rate Body temperature Body mass index (BMI) Body weight Oxygen saturation Oxygen saturation in Arterial blood by Pulse oximetry Body height Heart rate Body temperature Body mass index (BMI) Body weight Oxygen saturation Oxygen saturation in Arterial blood by Pulse oximetry Provider Name and Address Organization Details Last Updated DateTime 4 180.34 cm 73 /min 97.9 [degF] 50.2 kg/m2 047680. 25 g 96 % 96 % 180.34 cm 73 /min 97.9 [degF] 50.2 kg/m2 629311. 25 g 96 % 96 % Zoë Momin MD - [facility] 4 10:45:14 Date Recorded Body height Body mass index (BMI) Body weight Provider Name and Address Organization Details Last Updated DateTime 08/10/2024 180.34 cm 49.8 kg/m2 804928.48 g AMNJULA OROPEZA [address], [place], [address], [place] [facility] 08/10/2024 11:56:06 Social History Question Answer Notes LastModified by Organizat ion Details LastModified Time Tobacco Smoking Status Never Smoker Zoë Momin georgiana, [employer] [facility] 10/05/2023 12:22:12 What Is Your Level Of Alcohol Consumption? Occasional [email or web address] Information not available 10/05/2023 How Many Times Per Week Do You Consume Alcohol? 3-4 Times Per Week [email or web address] Information not available 10/05/2023 What Was The Date Of Your Most Recent Tobacco Screening? 12/29/2023 [email or web address] Information not available 12/29/2023 Do You Use Any Illicit Or Recreational Drugs? No [email or web address] Information not available 10/05/2023 Has Tobacco Cessation Counseling Been Provided? No [email or web address] Information not available 10/05/2023 Do You Or Have You Ever Used Any Other Forms Of Tobacco Or Nicotine? No [email or web address] Information not available 10/05/2023 Sex: Unknown Functional Status None recorded. Mental Status None recorded. Family History Relationship Description Onset Age of this Age Resolved Age Notes LastModified by Organization Details LastModified Time Brother History of artificial heart valve Not available 05/2024 12:23:03 Brother Heart disease [email or web address] Not available 10/04 12:23:14 Medical History Condition Response Gout N Blood Diseases N MRSA N Blood Transfusion N Head Trauma/Injury N Hernia Y Depression N COPD N Lung Disease N Developmental or Behavioral Disorders N Pacemaker N Difficulty Swallowing N Anesthesia Complications N Anxiety Disorder N Cystic Fibrosis N Muscle, Joint, or Bone Problems Y Obesity Y Vision or Eye Problems N Arthritis Y Blood Clot N Stroke N Bladder or Kidney Problems N High Cholesterol Y Headaches N Fibromyalgia N Allergies/Hayfever N Ear or Hearing Problems Y Parkinson's Disease N Hospitalizations N GI Problems N ADD/ADHD N Skin Problems N PTSD N Anemia N Multiple Sclerosis N Meningitis N Heart Attack ([place]) N Diabetes N Immunocompromised N Hepatitis/Liver Disease N Bleeding Disorder N Cancer/Tumors N Heart Murmur N Cerebral Palsy N AIDS/HIV N Congestive Heart Failure (CHF) N Abuse/Domestic Violence N Asthma N Seizures N Peripheral Vascular Disease N Epilepsy/Seizures N AFib N Reflux/GERD Y Sleep Apnea Y Thyroid Disorder N Aneurysm N Neuropathy N Pulmonary Embolism N Hypertension Y Autism Spectrum Disorder (ASD) N Osteoporosis N Past Encounters Encounter ID Performer Location Encounter Start Date Encounter Closed Date Diagnosis/Indication Diagnosis SNOMED-CT Code Diagnosis ICD10 Code Diagnosis Note [id number] MIL JESUS PA-C [facility] [address] [place] [address] [place] [address] 10/05/2023 12:02:17 10/06/2023 09:26:36 Degeneration of lumbar intervertebral disc 14109299 M51.36 Herniation of nucleus pulposus 63694672 M53.80 Spasm of back muscles 20 8707567 M62.830 [id number] Loreta Pena MD [facility] [address] [place] [address] [place] [address] 11/18/2023 11:51:32 11/20/2023 16:40:48 [id number] Loreta Pena MD [facility] [address] [place] [address] [place] [address] 12/29/2023 09:39:48 12/30/2023 10:00:12 [id number] Zoë Momin [facility] [address] [place] [address] [place] [address] 12/29/2023 09:39:56 12/30/2023 09:50:25 [id number] MANJULA OROPEZA [facility] [address] [place] [address] [place] [address] 06/21/2024 09:01:50 07/12/2024 03:48:08 [id number] MANJULA OROPEZA [facility] [address] [place] [address] [place] [address] 07/09/2024 15:25:56 07/09/2024 15:26:32 [id number] Stephanie [facility] [address] [place] [address] 07/21/2024 16:42:11 07/21/2024 16:45:05 [id number] MANJULA OROPEZA [facility] [address] [place] [address],[facility] [address] [address] 08/10/2024 10:57:54 08/12/2024 03:48:13 History of arthrodesis 775590355 Z98.1 M54.16 Postoperat lindsey wound infection 61497740 T81.40XD Health Concerns Section Related Observation LastModified by Organization Detai ls LastModified Time None Recorded Concern Status LastModified by Organization Details LastModified Time None Recorded Advance Directives Directive None Recorded Payers Encounter Date Sequence Insurance Name Policy Number Policy Everett Covered Member ID Everett Member ID Guarantor Name 12/29/2023 1 [place]MEDICARE REPLACEMENT /ADVANTAGE - HMO) [id number] Ulysses Lord [id number] Ulysses Lord 06/21/2024 1 [place] /[place]VANTAGE - HMO) [id number] Ulysses Lord [id number] Ulysses Lord 07/09/2024 1 [place] /[place]VANTAGE - HMO) [id number] Ulysses Lord [id number] Ulysses Lord 07/21/2024 1 [place] /ADVANTAGE - HMO) [id number] Ulysses Lord [id number] Ulysses Lord 08/10/2024 1 [employer] - DOS ON OR AFTER 19 (MEDICARE REPLACEMENT /ADVANTAGE - HMO) [id number] Ulysses Lord [id number] Ulysses Lord Notes Date Note Type Note Provider Name and Address Organization Details Recorded Time 12/29/2023 text/html Ulysses Lord , 1960, [id number], [id number] Location and Date of visit: [place], 12/29/2023Chief Complaint: Persistent and severe lower back pain with a pain intensity of 10/10, impacting the ability to walk by the end of the day. 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 12/29/2023 13:08:01 06/21/2024 text/html 1.) H&P?Patient completed their H&P on 06/20/24, though we do not yet have these records for review. 2.) Do you have a brace?Patient states they have been fitted for a brace. They have been advised to bring their brace to their surgery. 3.) Do you take any blood thinning medications?Patient states they currently take celecoxib and has been advised to stop taking these medications 7 days prior to surgery 4.) Do you have a PMHx of DVT/blood clotPatient denies any prior history of DVT or blood clots. 5.) Do you use any nicotine products?Patient denies any current or past use of nicotine products. BGS is discussed with the patient and ordered 6.) Allergies - do you have a penicillin allergy?Patient states they have a penicillin allergy and their reaction includes throat swelling. Patient has no reactions to Clindamycin 7.) Do we have the patient's updated imaging?Patient's imaging is up-to-date and can be located within the [facility] [address]. MANJULA OROPEZA [address], [place], [address], [facility] [employer] 06/21/2024 11:08:20 07/21/2024 text/html Ulysses Lord , 1960, [address], [id number] ation: ISEDate of Visit: 2024-07-21 Chief Complaint:Patient presents with worsening symptoms post L4-S1 OLLIF performed at [facility] two weeks prior. History of Present Illness:- Patient transferred from an outside emergency room to [place].- White blood cell count elevated at 22,000.- Imaging raised concerns of hematoma versus epidural abscess.- Despite symptoms, patient remains functional. Stephanie stoner, [facility] [employer] [facility] 07/21/2024 16:45:00 08/10/2024 text/html Chief Complaint: one month post op s/p L4-S1 History of Present Illness:Ulysses Lord, a 64-year-old male, is currently one month postoperative from an L4 to S1 OLLIF. He reports a significant improvement in his condition since the operation. Initially, Ulysses was hesitant about the rehabilitation process but found motivation and determination to recover. He expresses satisfaction with the care received at the rehabilitation facility, noting the rigorous nature of the therapy provided. Ulysses recounts a recent hospitalization on night due to an infection, during which he was under the care of Dr. Robles. His white blood cell count was elevated, indicating an active infection, which has since been surgically addressed with I and D. 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 He has been instructed on the use of a stimulator as part of his treatment plan. Pain today: 10/03Pain at its worst: 10/03 MANJULA OROPEZA [address], [place], [address], [facility] [employer] [facility] 08/10/2024 17:38:33
--- OUTSIDE RECORDS SUMMARY | 2024-09-24 17:23 | XMS_ITS | Continuity of Care Document ---
Author Organization [place] [facility], [facility] Address [address] [address] Care Team Providers Care Lacemaker Name Role Phone CHARLEY JARED Primary Care Provider [phone] Assessment Encounter Date Assessment Date Assessment LastModified by Organization Details LastModified Time 08/10/2024 08/10/2024 Diagnosis: - Status post L4 [...] stimulator dispensed along with instructions on usage. [email or web address] Not available 08/10/2024 17:37:50 Plan of Treatment [...] Encounter Id Patient Instructions Last Modified By Organization Details Last Modified Time 08/10/2024 [id number] Conclusion: The patient has shown significant improvement post-surgery with stable hardware in place. Continued monitoring and rehabilitation are recommended to ensure optimal recovery. Synopsis: Ulysses Morton, 2024-08-10, DM, [place], Lumbar CT, Date: 08-05-2024, Location: [facility]; s/p L4-S1 OLLIF, resolved infection; follow-up L CT, physical therapy, Follow-up: with ID specialist, two months for CT. [email or web address] Not available 08/10/2024 17:37:51 Reason for Referral None Reported. Results Created Date Observation Date Name Description Value Unit Range Abnormal Flag Note LastModifiedBy Organization Detail LastModifiedTime 08/07/1908/05/2024 CT, lumba r spine , w/o contr ast No observ ation record ed. [email or web address] [facility] [address] [place], [address], 08/14/2024 15:47:01 Result Notes None recorded. Procedures Surgical History Date Name Laterality Status Provider Name and Address Organization Details Recorded Time 07/08/2024 lumbar spinal fusion completed MANJULA OROPEZA [address], [place], [address], [facility] 08/10/2024 11:59:17 Imaging Results None recorded. Procedure Notes None recorded. Medical Equipment None Reported. Allergies Allergen ID Allergen Name Allergen Category Reaction Reaction Severity Criticality Documentation Date Start Date Code Code System Note Provider Name and Address Organization Details Recorded Time 9533 Product containin g penicilli n (product) medicatio n swelling Not available Not available 10/05/2023 17775 8001 SNOMED Not Available Not Available Not Available 9534 Product containin g 3-hydroxy -3-methyl glutaryl- coenzyme A reductase inhibitor (product) medicatio n nausea Not available Not available 10/05/2023 62928 009 SNOMED Not Available Not Available Not [...] t Available Vitals Date Recorded Body height Body mass index (BMI) Body weight Provider Name and Address Organization Details Last Updated DateTime 08/10/2024 180.34 cm 49.8 kg/m2 814489.48 g MANJULA OROPEZA [address],[facility] [address], [address], [employer] 08/10/2024 11:56:06 Social History Question Answer Notes LastModified by Organizat ion Details LastModified Time Tobacco Smoking Status Never Smoker Zoë stoner, [employer] [facility] 10/05/2023 12:22:12 What Is Your Level Of Alcohol Consumption? Occasional [email or web address] Information not available 10/05/2023 How Many Times Per Week Do You Consume Alcohol? 3-4 Times Per Week Information not available 10/05/2023 What Was The Date Of Your Most Recent Tobacco Screening? 12/29/2023 [email or web address] Information not available 12/29/2023 Do You Use Any Illicit Or Recreational Drugs? No Information not available 10/05/2023 Has Tobacco Cessation Counseling Been Provided? No [email or web address] Information not available 10/05/2023 Do You Or Have You Ever Used Any Other Forms Of Tobacco Or Nicotine? No Information not available 10/05/2023 Sex: Unknown Functional Status None recorded. Mental Status None recorded. Family History Relationship Description Onset Age of this Age Resolved Age Notes LastModified by Organization Details LastModified Time Brother History of artificial heart valve [email or web address] Not available 05/2024 12:23:03 Brother Heart disease [email or web address] Not available 10/04 12:23:14 Medical History Condition Response Gout N Blood Diseases N Blood Transfusion N MRSA N Hernia Y Head Trauma/Injury N Lung Disease N Depression N COPD N Developmental or Behavioral Disorders N Pacemaker N Difficulty Swallowing N Anesthesia Complications N Cystic Fibrosis N Anxiety Disorder N Muscle, Joint, or Bone Problems Y Obesity Y Vision or Eye Problems N Arthritis Y Blood Clot N Stroke N Bladder or Kidney Problems N High Cholesterol Y Headaches N Fibromyalgia N Allergies/Hayfever N Parkinson's Disease N Ear or Hearing Problems Y Hospitalizations N GI Problems N ADD/ADHD N Skin Problems N Anemia N PTSD N Multiple Sclerosis N Meningitis N Heart Attack ([place]) N Diabetes N Immunocompromised N Hepatitis/Liver Disease N Bleeding Disorder N Cancer/Tumors N Heart Murmur N Cerebral Palsy N AIDS/HIV N Congestive Heart Failure (CHF) N Abuse/Domestic Violence N Asthma N Peripheral Vascular Disease N Epilepsy/Seizures N AFib N Seizures N Reflux/GERD Y Sleep Apnea Y Thyroid Disorder N Aneurysm N Neuropathy N Pulmonary Embolism N Hypertension Y Autism Spectrum Disorder (ASD) N Osteoporosis N Past Encounters Encounter ID Performer Location Encounter Start Date Encounter Closed Date Diagnosis/Indication Diagnosis SNOMED-CT Code Diagnosis ICD10 Code Diagnosis Note [id number] Stephanie Murray [facility] [address] [place] [address] [address] VIJAY LAWLER [address] 07/21/2024 16:42:11 07/21/2024 16:45:05 [id number] MANJULA OROPEZA [facility] [address] [place] [address],[facility] [address] [place] [address] 08/10/2024 10:57:54 08/12/2024 03:48:13 History of arthrodesis 112092517 Z98.1 M54.16 Postoperat lindsey wound infection 55842288 T81.40XD Health Concerns Section Related Observation LastModified by Organization Detai ls LastModified Time None Recorded Concern Status LastModified by Organization Details LastModified Time None Recorded Payers Encounter Date Sequence Insurance Name Policy Number Policy Everett Covered Member ID Everett Member ID Guarantor Name 08/10/2024 1 [employer] - DOS ON OR AFTER 19 (MEDICARE REPLACEMENT/ ADVANTAGE - HMO) [id number] Ulysses Lord [id number] Ulysses Golombeski Notes Date Note Type Note Provider Name and Address Organization Details Recorded Time 08/10/2024 text/html Chief Complaint: one month post [...] provided. Ulysses recounts a recent hospitalization on due to an infection, during which he [...] part of his treatment plan. Pain today: 310Pain at its worst: 310 MANJULA OROPEZA [address], [place], [address], [facility] - [facility] 08/10/2024 17:38:33
== END 2024-09-24 17:49 | disposition home or self-care (01) ==
PROVIDERS: Emergency Provider Emergency Medicine Emergency Medical Services; PCP Family Medicine
DX: D64.9 Anemia, unspecified (principal); R10.13 Epigastric pain
CPT/HCPCS: 36415; 80048; 85025; 96374; 99283; 99284; J2919; S5010

== ENCOUNTER 2024-09-29 08:51 | Outpatient (CLI) | payer MEDICARE, SELFPAY | END 2024-09-29 08:52 | disposition home or self-care (01) | LOC: CT 08:51 | PROVIDERS: PCP Family Medicine; Visit Provider Physician Assistant | DX: M54.16 Radiculopathy, lumbar region (principal); M51.26 Other intervertebral disc displacement, lumbar region; M51.27 Other intervertebral disc displacement, lumbosacral region; Z98.1 Arthrodesis status | CPT/HCPCS: 72131 ==

== ENCOUNTER 2024-12-29 09:34 | Outpatient (CLI) | payer MEDICARE, SELFPAY ==
--- NOTE | 2024-12-29 10:00 | CRLHL7_ITS ---
For Patients: As a result of the Century Cures Act, medical imaging exams and procedure reports are released immediately into your electronic medical record. You may view this report before your referring provider. If you have questions, please contact your health care provider. INDICATION: Lumbar radiculopathy. TECHNIQUE: CT lumbar spine without contrast. COMPARISON: CT abdomen pelvis dated 09/29/2024. FINDINGS: Vertebrae: Redemonstrated postsurgical changes of L4-S1 PSIF with L3-4 laminectomies and disc spacers in place. Similar lucency about the L4 right transpedicular screw. Unchanged grade 1 anterolisthesis of L4 on L5. No evident acute fracture or traumatic subluxation. Discs and facet joints: Unchanged multilevel degenerative changes, as characterized on the prior examination, with mild spinal canal stenosis at L2-3 and mild left neural foraminal stenosis at L5-S1. Extraspinal findings: Redemonstrated postsurgical changes in the paraspinal soft tissues. No acute findings. IMPRESSION: 1. Unchanged postsurgical changes from L3-S1 with similar lucency about the L3-4 right transpedicular screw, which may reflect hardware loosening. 2. No sign of acute injury. 3. Unchanged multilevel degenerative spondylosis by CT. Please note that all CT scans at this facility use dose modulation, iterative reconstruction, and/or weight-based dosing when appropriate to reduce radiation dose to as low as reasonably achievable. Dictated by Beny Reece MD @ 12/29/2024 5:54:54 PM (Electronically Signed)
== END 2024-12-29 09:35 | disposition home or self-care (01) ==
LOC: CT 09:35
PROVIDERS: PCP Family Medicine; Visit Provider Physician Assistant
DX: M54.16 Radiculopathy, lumbar region (principal); Z98.1 Arthrodesis status
CPT/HCPCS: 72131

== ENCOUNTER 2025-06-12 07:36 | Outpatient (CLI) | payer MEDICARE, SELFPAY ==
--- NOTE | 2025-06-12 08:00 | CRLHL7_ITS ---
For Patients: As a result of the Century Cures Act, medical imaging exams and procedure reports are released immediately into your electronic medical record. You may view this report before your referring provider. If you have questions, please contact your health care provider. INDICATION: Noncontrast CT lumbar spine. Comparison : 12/29/2024. Technique : Noncontrast CT lumbar spine FINDINGS: Stable grade 1 anterolisthesis of L4 on L5 measures approximate 5 millimeters otherwise, normal alignment. No acute fractures. Stable postoperative changes diskectomy interbody fusion L4-5 and L5-S1. Interval progressive fusion across the interspace. Posterior fusion hardware L4-S1. There is lucency about the bilateral L4 and right L5 fixation screws concerning for hardware loosening. Stable laminectomies at L3-4 and L4-5. No fractures visualized lower ribs. [id number] L1-2: No spinal canal or neural foraminal narrowing. L2-3: Disc degeneration posted disc bulge. Mild narrowing of spinal canal. No neural foraminal narrowing. L3-4: No narrowing of the spinal canal. Mild narrowing of bilateral foramina. L4-5: Grade 1 anterolisthesis. Spinal canal is decompressed by laminectomy. No neural foraminal narrowing. L5-S1: Disc generation. No narrowing of spinal canal. No impingement of the traversing S1 nerve roots. No neural foraminal narrowing. Degenerative changes of the SI joints. Vascular calcifications. IMPRESSION: 1. Stable grade 1 anterolisthesis of L4 on L5. Otherwise normal alignment. 2. No acute fractures 3. Stable postoperative changes L4-S1. Lucency about the bilateral L4 and right L5 fixation screws concerning for hardware loosening. 4. Lumbar spondylosis. 5. At L2-3, mild narrowing of the spinal canal 6. At L3-4, mild narrowing of the bilateral neural foramina Please note that all CT scans at this facility use dose modulation, iterative reconstruction, and/or weight-based dosing when appropriate to reduce radiation dose to as low as reasonably achievable. Dictated by Chay Giles MD @ 06/12/2025 12:14:15 PM (Electronically Signed)
== END 2025-06-12 07:37 | disposition home or self-care (01) ==
LOC: CT 07:37
PROVIDERS: PCP Family Medicine; Visit Provider Physician Assistant
DX: Z98.1 Arthrodesis status (principal); M47.896 Other spondylosis, lumbar region; M51.26 Other intervertebral disc displacement, lumbar region
CPT/HCPCS: 72131